=== PATIENT | male | born 1945 | race Caucasian/White ===

== ENCOUNTER 2017-11-20 04:02 | Emergency (ER) | payer OTHER, MEDICARE ==
[2017-11-20] MEDS ORDERED: OXYCODONE-ACETAMINOPHEN 5-325 MG TABLET PO ONE (04:52)
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
[2017-11-20] MEDS ORDERED: CEPHALEXIN 500 MG CAPSULE PO ONE (05:51)
[2017-11-20 06:20] VITALS: BP 139/91
--- NOTE | 2017-11-20 08:01 | RADIOLOGY REPORT (SQ) ---
EXAM DESCRIPTION: ELBOW LEFT OVER 2 VIEWS COMPLETED DATE/TIME: 11/20/2017 4:45 am REASON FOR STUDY: fall with swelling COMPARISON: None. NUMBER OF VIEWS: Four views. TECHNIQUE: AP, lateral, and both oblique radiographic images acquired of the left elbow. LIMITATIONS: None. FINDINGS: MINERALIZATION: Normal. BONES: No acute fracture or dislocation. No worrisome bone lesions. JOINT: No effusion. SOFT TISSUES: Soft tissue swelling posteriorly. OTHER: No other significant finding. IMPRESSION: Soft tissue swelling. No acute posttraumatic bony changes. TECHNICAL DOCUMENTATION: JOB ID: [id number] [employer]- All Rights Reserved Reading location - IP/workstation name: [email or web address]
== END 2017-11-20 06:19 | disposition home or self-care (01) ==
LOC: ER 04:02
DX: L03.114 Cellulitis of left upper limb (principal); S50.312A Abrasion of left elbow, initial encounter; W01.0XXA Fall on same level from slipping, tripping and stumbling without subsequent striking against object, initial encounter; F17.200 Nicotine dependence, unspecified, uncomplicated; J44.9 Chronic obstructive pulmonary disease, unspecified; E11.9 Type 2 diabetes mellitus without complications; Z90.49 Acquired absence of other specified parts of digestive tract
CPT/HCPCS: 99283

== ENCOUNTER 2017-12-13 19:43 | Emergency (ER) | payer OTHER, MEDICARE ==
[2017-12-13] MEDS ORDERED: KETOROLAC TROMETHAMINE INJ/PF 30 MG/1 ML SDV IV ONE (21:16)
--- NOTE | 2017-12-13 21:16 | ER Document Report ---
ED General - General Chief Complaint: Elbow Injury Stated Complaint: LEFT ELBOW PAIN Time Seen by Provider: 12/13/17 20:34 TRAVEL OUTSIDE OF THE [place] IN LAST 30 DAYS: No - HPI Patient complains to provider of: Left elbow swelling Notes: Patient coming in for evaluation of left elbow swelling. Patient states he was recently seen an x-ray performed no signs of acute fracture patient states later his elbow did have swelling he had a scab on his own will be removed the scab and had a large amount of fluid release patient states the fluid has returned patient states some pain to palpation of the swelling of his elbow. Patient otherwise denies fever chills nausea vomiting diarrhea. Denies any pain with range of motion of the left arm or elbow - Related Data Allergies/Adverse Reactions: seafood Allergy (Uncoded 11/20/17 04:35) Past Medical History - Social History Smoking Status: Current Every Day Smoker Chew tobacco use (# tins/day): No Frequency of alcohol use: Occasional Drug Abuse: None Family History: Reviewed & Not Pertinent Patient has suicidal ideation: No Patient has homicidal ideation: No Pulmonary Medical History: Reports: Hx COPD Endocrine Medical History: Reports: Hx Diabetes Mellitus Type 2 Renal/ Medical History: Denies: Hx Peritoneal Dialysis Past Surgical History: Reports: Hx Cholecystectomy, Hx Herniorrhaphy - Immunizations Hx Diphtheria, Pertussis, Tetanus Vaccination: Yes Review of Systems - Review of Systems Constitutional: No symptoms reported EENT: No symptoms reported Cardiovascular: No symptoms reported Respiratory: No symptoms reported Gastrointestinal: No symptoms reported Genitourinary: No symptoms reported Male Genitourinary: No symptoms reported Musculoskeletal: Other - Elbow swelling Skin: No symptoms reported Hematologic/Lymphatic: No symptoms reported Neurological/Psychological: No symptoms reported -: Yes All other systems reviewed and negative Physical Exam - Vital signs Vitals: Temp Pulse Resp BP Pulse Ox 98.2 F 86 16 117/70 96 12/13/17 19:57 12/13/17 19:57 12/13/17 19:57 12/13/17 19:57 12/13/17 19:57 Interpretation: Normal - General General appearance: Appears well, Alert - HEENT Head: Normocephalic, Atraumatic Eyes: Normal Pupils: PERRL - Respiratory Respiratory status: No respiratory distress Chest status: Nontender Breath sounds: Normal Chest palpation: Normal - Cardiovascular Rhythm: Regular Heart sounds: Normal auscultation Murmur: No - Abdominal Inspection: Normal Distension: No distension Bowel sounds: Normal Tenderness: Nontender Organomegaly: No organomegaly - Back Back: Normal, Nontender - Extremities General upper extremity: Normal inspection, Edema - Patient has classic signs and symptoms of a olecranon bursitis on the left elbow. Mild warmth no significant erythema range of motion of the left arm is intact and nonpainful, Normal color, Normal ROM, Normal temperature General lower extremity: Normal inspection, Nontender, Normal color, Normal ROM , Normal temperature, Normal weight bearing. No: Tami's sign - Neurological Neuro grossly intact: Yes Cognition: Normal Orientation: AAOx4 Concepcion Coma Scale Eye Opening: Spontaneous [place] Coma Scale Verbal: Oriented Concepcion Coma Scale Motor: Obeys Commands [place] Coma Scale Total: 15 Speech: Normal Motor strength normal: LUE, RUE, LLE, RLE Sensory: Normal - Psychological Associated symptoms: Normal affect, Normal mood - Skin Skin Temperature: Warm Skin Moisture: Dry Skin Color: Normal Course - Re-evaluation Re-evalutation: 12/14/17 03:35 Patient with classic signs and symptoms of a bursitis. Patient was educated about treatment of bursitis discharged on follow-up with orthopedics. - Vital Signs Vital signs: Temp Pulse Resp BP Pulse Ox 97.5 F 71 18 121/71 98 12/13/17 21:30 12/13/17 21:30 12/13/17 21:30 12/13/17 21:30 12/13/17 21:30 Discharge - Discharge Clinical Impression: Olecranon bursitis, left elbow Condition: Good Disposition: HOME, SELF-CARE Instructions: Anti-Inflammatory Medication ([facility]), Bursitis ([facility]), Olecranon Bursitis ([facility]) Additional Instructions: Please use Jeff wrap as needed for compression to aid in your olecranon bursitis or elbow bursitis. Please take Tylenol anti-inflammatory medication for pain control. Would recommend eating food with the anti-inflammatory medication please be aware that this can cause GI issues. I would recommend follow-up with orthopedic doctor provided for further evaluation Prescriptions: Ibuprofen [Motrin 600 Mg Tablet] 600 mg PO TID #15 tablet Referrals: REYES MCKINLEY MD [ACTIVE STAFF] - Follow up as needed
[2017-12-13 21:39] VITALS: BP 121/71
== END 2017-12-13 21:39 | disposition home or self-care (01) ==
LOC: ER 19:43
DX: M70.22 Olecranon bursitis, left elbow (principal); E11.9 Type 2 diabetes mellitus without complications; J44.9 Chronic obstructive pulmonary disease, unspecified; F17.200 Nicotine dependence, unspecified, uncomplicated; Z91.013 Allergy to seafood
CPT/HCPCS: 99283; 96374; J1885

== ENCOUNTER 2018-02-28 00:23 | Emergency (ER) | payer OTHER, MEDICARE ==
--- NOTE | 2018-02-28 01:18 | RADIOLOGY REPORT (SQ) ---
EXAM DESCRIPTION: XR KNEE 4 OR MORE VIEWS COMPLETED DATE/TME: 02/28/2018 00:00 CLINICAL HISTORY: 72 years Male, Pain s/p injury yesterday COMPARISON: None. Findings: Atherosclerosis. Bones, joints, and soft tissues of the LEFT XR KNEE 4 VIEWS appear otherwise intact. IMPRESSION: No acute findings.
[2018-02-28] MEDS ORDERED: HYDROCODONE/ACETAMINOPHEN 5-325 MG TABLET PO ONE (01:39)
--- NOTE | 2018-02-28 01:40 | ER Document Report ---
ED General - General Chief Complaint: Knee Injury Stated Complaint: KNEE INJURY Time Seen by Provider: 02/28/18 01:30 Notes: Patient is 72-year-old male who was walking down steps and slipped in his knee against a railing on the steps. Says his pain in his left knee. He denies pain anywhere else. No other injuries. He is able walk and bear weight but says is painful to do so. He denies any weakness numbness into his left foot. No pain to his hip. He denies hitting his head. No other complaints at this time. Patient takes Lortab at home for chronic back pain. TRAVEL OUTSIDE OF THE [place] IN LAST 30 DAYS: No - Related Data Allergies/Adverse Reactions: seafood Allergy (Uncoded 11/20/17 04:35) Past Medical History - Social History Smoking Status: Unknown if Ever Smoked Frequency of alcohol use: None Drug Abuse: None Family History: Reviewed & Not Pertinent Patient has suicidal ideation: No Patient has homicidal ideation: No Pulmonary Medical History: Reports: Hx COPD Endocrine Medical History: Reports: Hx Diabetes Mellitus Type 2 Renal/ Medical History: Denies: Hx Peritoneal Dialysis Past Surgical History: Reports: Hx Cholecystectomy, Hx Herniorrhaphy - Immunizations Hx Diphtheria, Pertussis, Tetanus Vaccination: Yes Review of Systems - Review of Systems Notes: My Normal Review Basic REVIEW OF SYSTEMS: CONSTITUTIONAL : Denies fever, chills, or sweats. Denies recent illness. MUSCULOSKELETAL: Left knee pain SKIN: Denies rash or skin lesions. HEMATOLOGIC : Denies easy bruising or bleeding. NEUROLOGICAL: Denies altered mental status or loss of consciousness. Denies headache. Denies weakness or paralysis or loss of use of either side. Denies problems with gait or speech. Denies sensory or motor loss. ALL OTHER SYSTEMS REVIEWED AND NEGATIVE. Physical Exam - Vital signs Vitals: Temp Pulse Resp BP Pulse Ox 97.7 F 78 20 129/73 H 97 02/28/18 00:31 02/28/18 00:31 02/28/18 00:31 02/28/18 00:31 02/28/18 00:31 - Notes Notes: General Appearance: Well nourished, alert, cooperative, no acute distress, mild to moderate obvious discomfort. Vitals: reviewed, See vital signs table. Head: no swelling or tenderness to the head Eyes: PERRL, EOMI, Conjuctiva clear Neck: Supple, no neck tenderness, No thyromegaly Back: No tenderness palpation of thoracic or lumbar spine. Lungs: No wheezing, No rales, No rhonci, No accessory muscle use, good air exchange bilaterally. Heart: Normal rate, Regular rythm, No murmur, no rub Extremities: strength 5/5 in all extremities, good pulses in all extremities, patient has some pain palpation over the patella itself. The knee is not swollen. I am able to put his knee in flexion extension. He has no ligamentous laxity of the knee. His hip foot and ankle are all nontender. Is good distal pulses and good distal sensation. Other 3 extremities are nontender and there is no pain with range of motion. Skin: warm, dry, appropriate color, no rash Neuro: speech clear, oriented x 3, normal affect, responds appropriately to questions. Cranial nerves II through XII are intact. Patient moves all extremities on his own without difficulty. Course - Re-evaluation Re-evalutation: 02/28/18 03:08 Patient is well-appearing. His knee is not concerning on exam. I will give him an Jeff wrap. His x-rays negative. He has no swelling knee. He just has some pain over the patella but the x-ray shows no evidence of fracture. We will do an Jeff wrap and crutches. I will refer him to orthopedics for follow- up if he still having pain after 1 week. Patient to take his home prescribed pain medicine for pain. Patient agrees with plan will be discharged home. Patient to return to ER if he has swelling in his knee or worsening pain. Dictation of this chart was performed using voice recognition software; therefore, there may be some unintended grammatical errors. - Vital Signs Vital signs: Temp Pulse Resp BP Pulse Ox 97.7 F 78 20 129/73 H 97 02/28/18 00:31 02/28/18 00:31 02/28/18 00:31 02/28/18 00:31 02/28/18 00:31 Discharge - Discharge Clinical Impression: Strain of knee Qualifiers: Encounter type: initial encounter Laterality: left Qualified Code(s): S86.912A - Strain of unspecified muscle(s) and tendon(s) at lower leg level, left leg, initial encounter Condition: Good Disposition: HOME, SELF-CARE Additional Instructions: Please take your prescribed pain medicine for pain control. Please continue to wrap your knee with the jeff wrap for support. Use crutches if you have pain with weight bearing. Please follow up with the orthopedist for evaluation if you are still having pain after 1 week. Referrals: DANAE HUIZAR MD [ACTIVE STAFF] - Follow up in 1 week
[2018-02-28 03:33] VITALS: BP 126/71
== END 2018-02-28 02:30 | disposition home or self-care (01) ==
LOC: ER 00:23
DX: S86.912A Strain of unspecified muscle(s) and tendon(s) at lower leg level, left leg, initial encounter (principal); W10.9XXA Fall (on) (from) unspecified stairs and steps, initial encounter; J44.9 Chronic obstructive pulmonary disease, unspecified; E11.9 Type 2 diabetes mellitus without complications; Z91.013 Allergy to seafood; Z90.49 Acquired absence of other specified parts of digestive tract
CPT/HCPCS: 99283

== ENCOUNTER 2018-07-16 14:40 | Emergency (ER) | payer OTHER, MEDICARE ==
[2018-07-16 15:18] LABS: ABSOLUTE EOSINOPHILS # (AUTO) 0.1 10^3/uL (0.0-0.6); ABSOLUTE MONOCYTES (AUTO) 0.4 10^3/uL (0.1-1.4); ABSOLUTE NEUT (AUTO) 4.4 10^3/uL (1.7-8.2); BASOPHILS % (AUTO) 0.5 % (0-2); EOSINOPHILS % (AUTO) 1.6 % (0-6); HEMATOCRIT 43.1 % (37.9-51.0); HEMOGLOBIN 15.2 g/dL (13.5-17.0); LYMPHOCYTES % (AUTO) 28.4 % (13-45); MEAN CORPUSCULAR HGB CONC 35.2 g/dL (32.0-36.0); MEAN CORPUSCULAR VOLUME 91 fl (80-97); MONOCYTES % (AUTO) 6.3 % (3-13); PLATELET COUNT 221 10^3/uL (150-450); RED BLOOD COUNT 4.73 10^6/uL (4.35-5.55); SEGMENTED NEUTROPHILS % (AUTO) 63.2 % (42-78); TOTAL CELLS COUNTED % (AUTO) 100 %; WHITE BLOOD COUNT 6.9 10^3/uL (4.0-10.5)
[2018-07-16 15:20] LABS: APPEARANCE,URINE SLIGHTLY-CLOUDY; BILIRUBIN,URINE NEGATIVE (NEGATIVE); COLOR,URINE YELLOW; GLUCOSE, URINE >=500 mg/dL (NEGATIVE); KETONES,URINE NEGATIVE (NEGATIVE); LEUKOCYTE ESTERASE,URINE NEGATIVE (NEGATIVE); NITRITE,URINE NEGATIVE (NEGATIVE); PROTEIN,URINE NEGATIVE (NEGATIVE); URINE SPECIFIC GRAVITY 1.016; UROBILINOGEN,URINE NEGATIVE mg/dL (<2.0)
[2018-07-16 15:22] LABS: INTERNATIONAL RATION (INR) 0.91; PROTHROMBIN TIME 12.7 SEC (11.4-15.4)
[2018-07-16 15:32] LABS: ALANINE AMINOTRANSFERASE 28 U/L (21-72); ALBUMIN 3.9 g/dL (3.5-5.0); ALKALINE PHOSPHATASE 109 U/L (38-126); ANION GAP 10 (5-19); ASPARTATE AMINO TRANSFERASE 20 U/L (17-59); BILIRUBIN,DIRECT 0.3 mg/dL (0.0-0.4); BILIRUBIN,TOTAL 0.5 mg/dL (0.2-1.3); BLOOD UREA NITROGEN 12 mg/dL (7-20); CALCIUM 9.2 mg/dL (8.4-10.2); CARBON DIOXIDE 29 mmol/L (22-30); CHLORIDE 100 mmol/L (98-107); GLUCOSE 181 mg/dL (75-110); POTASSIUM 3.8 mmol/L (3.6-5.0); SODIUM 138.6 mmol/L (137-145); TOTAL PROTEIN 6.4 g/dL (6.3-8.2)
--- NOTE | 2018-07-16 15:36 | RADIOLOGY REPORT (SQ) ---
EXAM DESCRIPTION: PELVIS AP COMPLETED DATE/TIME: 07/16/2018 3:18 pm REASON FOR STUDY: pelvis pain COMPARISON: None. NUMBER OF VIEWS: One view TECHNIQUE: AP Pelvis LIMITATIONS: None. FINDINGS: MINERALIZATION: Normal. HIPS: No acute fracture or dislocation. No worrisome bone lesions. PELVIS AND SACRUM: No acute fracture or dislocation. No worrisome bone lesions. PUBIS AND ISCHIUM: No acute fracture. LOWER LUMBAR SPINE: No significant findings as visualized. SOFT TISSUES: No findings. OTHER: No other significant finding. IMPRESSION: No fracture or dislocation of the pelvis in single AP projection. TECHNICAL DOCUMENTATION: JOB ID: [id number] [employer]- All Rights Reserved Reading location - IP/workstation name: [email or web address]
--- NOTE | 2018-07-16 15:38 | RADIOLOGY REPORT (SQ) ---
EXAM DESCRIPTION: CHEST SINGLE VIEW COMPLETED DATE/TIME: 07/16/2018 3:18 pm REASON FOR STUDY: chest pain COMPARISON: None. EXAM PARAMETERS: NUMBER OF VIEWS: One view. TECHNIQUE: Single frontal radiographic view of the chest acquired. RADIATION DOSE: NA LIMITATIONS: None. FINDINGS: LUNGS AND PLEURA: No opacities, masses or pneumothorax. No pleural effusion. MEDIASTINUM AND HILAR STRUCTURES: No masses. Contour normal. HEART AND VASCULAR STRUCTURES: Heart normal in size. Normal vasculature. BONES: No acute findings. HARDWARE: None in the chest. OTHER: No other significant finding. IMPRESSION: NO ACUTE RADIOGRAPHIC FINDING IN THE CHEST. TECHNICAL DOCUMENTATION: JOB ID: [id number] [employer]- All Rights Reserved Reading location - IP/workstation name: [email or web address]
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
[2018-07-16] MEDS ORDERED: MORPHINE SULFATE 10 MG/ML INJ IV ONE (15:43)
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
--- NOTE | 2018-07-16 19:47 | EKG REPORT ---
SEVERITY:- NORMAL ECG - SINUS RHYTHM : Confirmed by: Shannon Vences MD 16-Jul-2018 19:47:18
[2018-07-16] MEDS ORDERED: KETOROLAC TROMETHAMINE INJ/PF 30 MG/1 ML SDV IV ONE (20:15)
[2018-07-16] MEDS ORDERED: OXYCODONE-ACETAMINOPHEN 5-325 MG TABLET PO ONE (22:09)
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
[2018-07-16 22:11] VITALS: BP 154/144
== END 2018-07-16 22:45 | disposition home or self-care (01) ==
LOC: ER 14:40
DX: T14.8XXA Other injury of unspecified body region, initial encounter (principal); M54.5 Low back pain; M25.511 Pain in right shoulder; M25.512 Pain in left shoulder; R10.2 Pelvic and perineal pain; V48.6XXA Car passenger injured in noncollision transport accident in traffic accident, initial encounter; F17.210 Nicotine dependence, cigarettes, uncomplicated; J44.9 Chronic obstructive pulmonary disease, unspecified; E11.9 Type 2 diabetes mellitus without complications; Z91.013 Allergy to seafood; F19.10 Other psychoactive substance abuse, uncomplicated
CPT/HCPCS: 93005; 96374; 99285; 96375; 36415; 85025; 85610; 82272; 80053; 81001; 71045; 72170; 73030; 70450; 71260; 72125; 74177; 93010; J1885; J2270

== ENCOUNTER 2019-04-16 16:07 | Observation (INO) | payer OTHER, MEDICARE ==
--- NOTE | 2019-04-16 16:32 | RADIOLOGY REPORT (SQ) ---
EXAM DESCRIPTION: CHEST SINGLE VIEW COMPLETED DATE/TIME: 04/16/2019 4:24 pm REASON FOR STUDY: stroke-like symptoms COMPARISON: 07/16/2018 NUMBER OF VIEWS: One view. TECHNIQUE: Single frontal radiographic image of the chest acquired. LIMITATIONS: None. FINDINGS: LUNGS AND PLEURA: Stable appearance. MEDIASTINUM AND HILAR STRUCTURES: Stable heart size and mediastinal structures. HEART AND VASCULAR STRUCTURES: Stable appearance. SUPPORT DEVICES: Appropriate location without change. BONES: No acute findings. OTHER: No other significant finding. IMPRESSION: STABLE APPEARANCE OF THE CHEST. SUPPORT DEVICES UNCHANGED. TECHNICAL DOCUMENTATION: JOB ID: [id number] [employer]- All Rights Reserved Reading location - IP/workstation name: [email or web address]
--- NOTE | 2019-04-16 16:32 | RADIOLOGY REPORT (SQ) ---
EXAM DESCRIPTION: CT HEAD WITHOUT COMPLETED DATE/TIME: 04/16/2019 4:18 pm REASON FOR STUDY: stroke-like symptoms COMPARISON: 07/16/2018 TECHNIQUE: Axial images acquired through the brain without intravenous contrast. Images reviewed wi th bone, brain and subdural windows. Additional sagittal and coronal reconstructions were generated. Images stored on PACS. All CT scanners at this facility use dose modulation, iterative reconstruction, and/or weight based d osing when appropriate to reduce radiation dose to as low as reasonably achievable (ALARA). [facility]: Dose Right [facility]: CareDose [facility]: Dose Right [facility]: Teradose 4D [facility]: [place] RADIATION DOSE: CT Rad equipment meets quality standard of care and radiation dose reduction techniq ues were employed. CTDIvol: 53.2 mGy. DLP: 1097 mGy-cm. mGy. LIMITATIONS: None. FINDINGS: VENTRICLES: Normal size and contour. CEREBRUM: No masses. No hemorrhage. No midline shift. No evidence for acute infarction. Normal gra y/white matter differentiation. No areas of low density in the white matter. CEREBELLUM: No masses. No hemorrhage. No alteration of density. No evidence for acute infarction. EXTRAAXIAL SPACES: No fluid collections. No masses. ORBITS AND GLOBE: No intra- or extraconal masses. Normal contour of globe without masses. CALVARIUM: No fracture. PARANASAL SINUSES: No fluid or mucosal thickening. SOFT TISSUES: No mass or hematoma. OTHER: No other significant finding. IMPRESSION: NORMAL BRAIN CT WITHOUT CONTRAST. EVIDENCE OF ACUTE STROKE: NO. COMMENT: Pertinent positive or negative findings of the imaging study reported as a CRITICAL EXAM t colleen LEE MD at16:25 on 04/16/2019. Category of Critical Exam: Stroke protocol. Quality ID # 436: Final reports with documentation of one or more dose reduction techniques (e.g., Au tomated exposure control, adjustment of the mA and/or kV according to patient size, use of iterative reconstruction technique) TECHNICAL DOCUMENTATION: JOB ID: [id number] [employer]- All Rights Reserved Reading location - IP/workstation name: [email or web address]
--- NOTE | 2019-04-16 16:40 | ER Document Report ---
ED NIH Stroke Scale - NIH Stroke Scale *: 1. NIH scale should be completed with appropriate accompanying assessment tools. *: 2. The NIH should reflect what the patient is capable of doing and should not be coached by the clinician. 1a. Level of Consciousness: 0=Alert;keenly responsive -: 1=Drowsy -: 2=Obtunded -: 3=Coma/unresponsive or reflex to noxious stimuli. 1a. Responses: 0 1b. Orientation Questions: a. What month is it? -: b. How old are you? -: 0=Answers both questions correctly. -: 1=Answers one question correctly or patient is intubated or has orotracheal trauma. -: 2=Answers neither question correctly. 1b. Responses: 0 1c. Response to commands: a. Open and close eyes? -: b. Hydraulic Riveter and release hand? -: Credit is given despite weakness. Demonstration of task is permitted. Substitute command if hands cannot be used. -: 0=Performs both tasks correctly -: 1=Performs one task correctly -: 2=Performs neither task correctly 1c. Responses: 0 2. Gaze: Establish eye contact and instruct patient to "Follow my finger" -: 0=Normal -: 1=Partial gaze palsy. Gaze is abnormal in one or both eyes, but where forced deviation or total gaze paresis is not present. -: 2=Forced deviation or total gaze paresis. 2. Responses: 0 3. Visual Dueñas: Sees fingers in all four quadrants. -: 0=No visual loss. -: 1=Partial hemianopsia. -: 2=Complete hemianopsia. -: 3=Bilateral hemianopsia (including Cortical blindness) 3. Responses: 0 4. Facial Movement: Instruct patient to: -: a. Show me your teeth -: b. Raise your eyebrows -: c. Close your eyes -: d. Smile -: 0=Normal symmetrical movement -: 1=Minor paralysis (flattened nasolabial fold, asymmetry on smiling). -: 2=Partial paralysis (total or near total paralysis of lower face). -: 3=Complete paralysis of upper and lower face 4. Responses: 0 5. Motor functions (left arm): Alternate sides and extend each arm with palms down (90 degrees if sitting or 45 degrees for supine). -: 0=No drift;limb holds for full 10 seconds. -: 1=Drift; limb holds but drifts down before full 10 seconds, but does not hit bed. -: 2=Some effort against gravity; limb cannot get to or maintain position. -: 3=No effort against gravity; limb falls. -: 4=No movement. -: UN=Amputation, joint fusion, explain in comments. 5. Responses (left arm): 0 5. Motor Functions (right arm): Alternate sides and extend each arm with palms down (90 degrees if sitting or 45 degrees for supine). -: 0=No drift;limb holds for full 10 seconds. -: 1=Drift; limb holds but drifts down before full 10 seconds, but does not hit bed. -: 2=Some effort against gravity; limb cannot get to or maintain position. -: 3=No effort against gravity; limb falls. -: 4=No movement. -: UN=Amputation, joint fusion, explain in comments. 5. Responses (right arm): 0 6. Motor Functions (left leg): With patient lying supine, alternate sides and extend each leg (30 degrees always while supine). -: 0=No drift, leg holds position for full 5 seconds -: 1=Drift; leg falls before full 5 seconds but does not hit bed. -: 2=Some effort against gravity, leg falls to bed but some effort against gravity. -: 3=No effort against gravity, leg falls to bed immediately. -: 4=No movement. -: UN=Amputation, joint fusion; explain in comments. 6. Responses (left leg): 0 6. Motor Functions (right leg): With patient lying supine, alternate sides and extend each leg (30 degrees always while supine). -: 0=No drift, leg holds position for full 5 seconds -: 1=Drift; leg falls before full 5 seconds but does not hit bed. -: 2=Some effort against gravity, leg falls to bed but some effort against gravity. -: 3=No effort against gravity, leg falls to bed immediately. -: 4=No movement. -: UN=Amputation, joint fusion; explain in comments. 6. Responses (right leg): 0 7. Limb Ataxia: With eyes open instruct patient to: -: a. "Touch your finger to your nose". -: b. "Touch your heel to your block" -: 0=Absent -: 1=Present in one limb. -: 2=Present in two limbs. -: UN=Amputation or joint fusion; explain in comments. 7. Responses: 0 8. Sensory: Test sensation using pinprick or noxious stimuli. Test as many body parts as possible. -: 0=Normal;no sensory loss -: 1=Mile to moderate sensory loss (patient feels pin prick but is less sharp on affected side). -: 2=Severe or total sensory loss. 8. Responses: 0 9. Best Language: Instruct patient to: -: a. "Describe what you see in this picture." -: b. "Name the items in this picture." -: c. "Read these sentences." -: 0=No aphasia, normal -: 1=Mild to moderate aphasia. -: 2=Severe aphasia -: 3=Mute, global aphasia, no usable speech or auditory comprehension. 9. Responses: 0 10. Articulation, Dysarthia: Instruct patient to: -: "Read these words" or "Repeat these words" -: 0=Normal -: 1=Mild to moderate; patient may slur some words but can be understood without difficulty. -: 2=Severe; patients speech so slurred as to be unintelligible in the absence of dysphasia. -: UN=Intubated or other physical barrier, explain in comments. 10. Responses: 1 11. Extinction or inattention: 0=No abnormality -: 1= Visual, tactile, auditory, spatial, or personal inattention or extinction to bilateral simulation in one or the sensory modalities. -: 2=Profound tavares-inattention or tavares-inattention to more than one modality; does not recognize own hand. 11. Responses: 0 Total Score: 1
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
[2019-04-16 17:01] LABS: ABSOLUTE EOSINOPHILS # (AUTO) 0.1 10^3/uL (0.0-0.6); ABSOLUTE LYMPHOCYTES (AUTO) 1.6 10^3/uL (0.5-4.7); ABSOLUTE MONOCYTES (AUTO) 0.5 10^3/uL (0.1-1.4); BASOPHILS % (AUTO) 0.6 % (0-2); HEMOGLOBIN 14.3 g/dL (13.5-17.0); LYMPHOCYTES % (AUTO) 25.9 % (13-45); MEAN CORPUSCULAR HEMOGLOBIN 31.6 pg (27.0-33.4); MEAN CORPUSCULAR HGB CONC 34.1 g/dL (32.0-36.0); MEAN CORPUSCULAR VOLUME 93 fl (80-97); MONOCYTES % (AUTO) 8.3 % (3-13); PLATELET COUNT 203 10^3/uL (150-450); RED BLOOD COUNT 4.53 10^6/uL (4.35-5.55); RED CELL DISTRIBUTION WIDTH 13.1 % (11.5-14.0); SEGMENTED NEUTROPHILS % (AUTO) 63.2 % (42-78); TOTAL CELLS COUNTED % (AUTO) 100 %; WHITE BLOOD COUNT 6.4 10^3/uL (4.0-10.5)
[2019-04-16 17:03] LABS: INTERNATIONAL RATION (INR) 1.03
[2019-04-16 17:06] LABS: PROTHROMBIN TIME 13.6 SEC (11.4-15.4)
[2019-04-16 17:31] LABS: ALBUMIN 3.9 g/dL (3.5-5.0); ALCOHOL < 10 mg/dL (NONE DETECTED); ALKALINE PHOSPHATASE 87 U/L (38-126); ANION GAP 8 (5-19); ASPARTATE AMINO TRANSFERASE 19 U/L (17-59); BILIRUBIN,DIRECT 0.2 mg/dL (0.0-0.4); BILIRUBIN,TOTAL 0.7 mg/dL (0.2-1.3); BLOOD UREA NITROGEN 12 mg/dL (7-20); CALCIUM 9.4 mg/dL (8.4-10.2); CARBON DIOXIDE 32 mmol/L (22-30); CHLORIDE 97 mmol/L (98-107); GLUCOSE 253 mg/dL (75-110); POTASSIUM 3.7 mmol/L (3.6-5.0); TOTAL PROTEIN 6.5 g/dL (6.3-8.2)
[2019-04-16] MEDS ORDERED: ONDANSETRON HCL INJ/PF 4 MG/2 ML SDV IV PRN (18:25)
[2019-04-16] MEDS ORDERED: ACETAMINOPHEN 325 MG TABLET PO PRN (18:25)
[2019-04-16] MEDS ORDERED: DEXTROSE 50%-WATER 25 GM/50 ML DISP.SYRIN IV PRN ×2 (18:29)
[2019-04-16] MEDS ORDERED: DEXTROSE 40% GEL 15 GM TUBE PO PRN ×2 (18:29)
[2019-04-16] MEDS ORDERED: GLUCAGON,HUMAN RECOMB 1 MG INJ IM PRN (18:29)
[2019-04-16] MEDS ORDERED: OXYCODONE-ACETAMINOPHEN 5-325 MG TABLET PO PRN (18:53)
--- NOTE | 2019-04-16 18:53 | PDOC H&P ---
History of Present Illness Admission Date/PCP: 04/16/19 18:33 [facility] Patient complains of: slurred speech this morning. History of Present Illness: SUSANNA HURTADO is a 73 year old male male with history of diabetes mellitus, hypertension, back pain came in with complaints of slurred speech. Patient not able to give much history. As per the ER physician his friends told him to wait for him to pick him up he waited for 3 hours they are no-show so he started w alking back to his home or place of leaving and felt dizzy having slurred speech brought to the emergency room for further evaluation. Only complaint in the ER is slurred speech ER physician did a CT head which was negative for acute pathology chest x-ray was negative for acute pathology INH score is 1 ER physician spoke to the neurology in [place] as per the recommendations no TPA was given. MEDICAL consult was called for further management. Past Medical History Pulmonary Medical History: Reports: Chronic Obstructive Pulmonary Disease (COPD) Endocrine Medical History: Reports: Diabetes Mellitus Type 2 Past Surgical History Past Surgical History: Reports: Cholecystectomy, Herniorrhaphy Social History Smoking Status: Current Every Day Smoker Frequency of Alcohol Use: Occasional Hx Recreational Drug Use: No Drugs: None - Advance Directive Resuscitation Status: Full Code Family History Family History: Reviewed & Not Pertinent Parental Family History Reviewed: Yes - No family history as per the patient Children Family History Reviewed: Yes Sibling(s) Family History Reviewed.: Yes Medication/Allergy Home Medications: Cephalexin Monohydrate [Keflex 500 mg Capsule] 500 mg PO Q6H 7 Days capsule 11/20/17 Hydrocodone/Acetaminophen [Kihei 5-325 Tablet] 1 each PO Q4 PRN #15 tablet 11/20/17 Ibuprofen [Motrin 600 Mg Tablet] 600 mg PO TID #15 tablet 12/13/17 Oxycodone HCl/Acetaminophen [Percocet 5-325 mg Tablet] 1 - 2 tab PO ASDIR PRN #25 tablet 07/16/18 Allergies/Adverse Reactions: seafood Allergy (Uncoded 11/20/17 04:35) Review of Systems Constitutional: ABSENT: chills, fatigue, fever(s), headache(s), weakness Eyes: ABSENT: visual disturbances Ears: ABSENT: hearing changes Nose, Mouth, and Throat: ABSENT: mouth pain, sore throat Cardiovascular: ABSENT: edema, orthropnea, palpitations Respiratory: ABSENT: dyspnea, hemoptysis Gastrointestinal: ABSENT: dysphagia, heartburn Musculoskeletal: ABSENT: joint swelling Neurological: PRESENT: other - Slurred speech. ABSENT: abnormal gait, abnormal speech, confusion, dizziness, focal weakness, syncope Psychiatric: ABSENT: anxiety, depression, homidical ideation, suicidal ideation Physical Exam Vital Signs: Temp Pulse Resp BP Pulse Ox 76 20 138/85 H 100 04/16/19 17:05 04/16/19 17:05 04/16/19 17:05 04/16/19 17:05 General appearance: PRESENT: no acute distress, cooperative, thin Head exam: PRESENT: atraumatic Eye exam: PRESENT: PERRLA Mouth exam: PRESENT: moist, neck supple, tongue midline Teeth exam: PRESENT: poor dentation Neck exam: ABSENT: carotid bruit, JVD, lymphadenopathy, thyromegaly Respiratory exam: PRESENT: decreased breath sounds Cardiovascular exam: PRESENT: RRR. ABSENT: diastolic murmur, rubs, systolic murmur GI/Abdominal exam: PRESENT: normal bowel sounds, soft. ABSENT: distended, guard ing, mass, organolmegaly, rebound, tenderness Rectal exam: PRESENT: deferred Extremities exam: PRESENT: full ROM. ABSENT: calf tenderness, clubbing, pedal edema Neurological exam: PRESENT: alert, awake, oriented to person, oriented to place, oriented to time, oriented to situation, CN II-XII grossly intact. ABSENT: motor sensory deficit Psychiatric exam: PRESENT: appropriate affect, normal mood. ABSENT: homicidal ideation, suicidal ideation Skin exam: PRESENT: dry, intact, warm. ABSENT: cyanosis, rash Results Laboratory Results: 04/16/19 16:41 04/16/19 16:41 04/16/19 04/16/19 16:41 16:41 WBC 6.4 RBC 4.53 Hgb 14.3 Hct 42.0 MCV 93 MCH 31.6 MCHC 34.1 RDW 13.1 Plt Count 203 Seg Neutrophils % 63.2 Sodium 137.4 Potassium 3.7 Chloride 97 L Carbon Dioxide 32 H Anion Gap 8 BUN 12 Creatinine 0.66 Est GFR ( Amer) > 60 Glucose 253 H Calcium 9.4 Total Bilirubin 0.7 AST 19 Alkaline Phosphatase 87 Total Protein 6.5 Albumin 3.9 04/16/19 16:41 Troponin I < 0.012 Impressions: Chest X-Ray 04/16/19 16:12 IMPRESSION: STABLE APPEARANCE OF THE CHEST. SUPPORT DEVICES UNCHANGED. Head CT 04/16/19 16:12 IMPRESSION: NORMAL BRAIN CT WITHOUT CONTRAST. EVIDENCE OF ACUTE STROKE: NO. Assessment and Plan - Diagnosis (1) Slurred speech Is this a current diagnosis for this admission?: Yes (2) HTN (hypertension) Is this a current diagnosis for this admission?: No (4) Back pain Is this a current diagnosis for this admission?: No - Plan Summary Summary: 1. transient ischemic attack 75-year-old male came to the emergency room with complaints of slurred speech CT head was negative NIH score of 1 as per the neurology recommendations no TPA was given in the ER plan to put him in ICU as observation , carotid Doppler was requested,aspiration, fall , seizure precautions are requested . stroke protocol was implemented . GI prophylaxis DVT prophylaxis initiated. Patient is started on aspirin, atorvastatin and to check the lipid panel in the morning. MRI of the brain was requested. Carotid Doppler was requested. Started on insulin sliding scale before meals and at bedtime. 2.hypertension And given the history of chronic essential hypertension taking lisinopril at home. Started on lisinopril 10 mg p.o. daily. To check blood pressures every shift. 2.diabetes mellitus type 2 Admitted he is a diabetic taking metformin, glipizide and a unknown third medication. To place him on insulin sliding scale and to check hemoglobin A1c in the morning. 4.chronic back pain He is taking oxycodone and ibuprofen at home. To restart oxycodone 1 tablet every 4 as needed for back pain. To check for urine drug screen. 8.tobacco abuse Patient is a chronic current day smoker smoking counseling was provided for more than 20 minutes to start him on nicotine patch. - Time Time Spent with patient: 25-34 minutes Medications reviewed and adjusted accordingly: Yes Anticipated discharge: Home
--- NOTE | 2019-04-16 19:56 | EKG REPORT ---
SEVERITY:- NORMAL ECG - SINUS RHYTHM : Confirmed by: Shannon Vences MD 16-Apr-2019 19:56:12
--- NOTE | 2019-04-16 20:46 | RADIOLOGY REPORT (SQ) ---
MR BRAIN WITHOUT IV CONTRAST EXAM DATE: 04/16/2019 12:00 AM CDT HISTORY: TIA. COMPARISON: CT scan from earlier the same day. TECHNIQUE: Multisequence, multiplanar MR imaging of the brain was performed without the administration of intravenous gadolinium. FINDINGS: Scattered areas of T2/FLAIR hyperintense foci are seen in the supratentorial white matter, likely representing chronic microvascular ischemia. There is no acute infarction, intracranial hemorrhage, extra-axial fluid collection, or mass. The brainstem, posterior fossa, and cervicomedullary junction are preserved. The intravascular flow voids are preserved. The orbits are unremarkable. No abnormality of the skull base or calvarium is seen. The paranasal sinuses are clear. IMPRESSION: 1. No acute infarction. 2. Senescent changes with chronic microvascular ischemia.
[2019-04-16] MEDS ORDERED: NICOTINE 14 MG/24 HR PATCH.TD24 TD ONE (21:00)
--- NOTE | 2019-04-16 21:23 | RADIOLOGY REPORT (SQ) ---
EXAM DESCRIPTION: US CAROTID DOPPLER BILATERAL COMPLETED DATE/TME: 04/16/2019 00:00 CLINICAL HISTORY: TIA COMPARISON: None. FINDINGS: Duplex images of the carotid and vertebral arteries were submitted. There is no elevation of the peak systolic velocity to suggest a hemodynamically significant stenosis. There is antegrade flow in both vertebral arteries. The peak systolic velocity of the right ICA and right CCA are of 99 and 52 cm/s. The peak systolic velocity of the left ICA left CCA are 91 and 53 cm/s. There is plaque formation within both carotid bulbs and internal carotid arteries, left greater than right. Peak systolic velocities of the mid and distal internal carotid arteries were not submitted. IMPRESSION: No hemodynamically significant stenosis. Antegrade flow in both vertebral arteries.
[2019-04-16] MEDS ORDERED: ATORVASTATIN CALCIUM 40 MG TABLET PO SCH (22:00)
[2019-04-16] MEDS: FAMOTIDINE 20 MG TABLET PO SCH (22:05)
[2019-04-16] MEDS: INSULIN REG, HUMAN 100 UNIT/ML 3 ML VIAL (PYX) SUBCUT SCH (22:07)
[2019-04-16] MEDS: ASPIRIN 325 MG TABLET PO SCH (22:11)
[2019-04-16] MEDS: LISINOPRIL 10 MG TABLET PO SCH (22:12)
[2019-04-17 00:09] LABS: URINE BARBITURATES SCREEN NEGATIVE; URINE BENZODIAZEPINES SCREEN NEGATIVE; URINE COCAINE SCREEN NEGATIVE; URINE MARIJUANA (THC) SCREEN NEGATIVE; URINE METHADONE SCREEN NEGATIVE; URINE PHENCYCLIDINE SCREEN NEGATIVE
[2019-04-17 00:13] LABS: URINE AMPHETAMINES SCREEN UNCONFIRMED POSITIVE
[2019-04-17 01:14] LABS: CREATINE KINASE MB 1.49 ng/mL (<4.55)
[2019-04-17 01:17] LABS: TROPONIN I < 0.012 ng/mL
[2019-04-17 06:57] LABS: ABSOLUTE EOSINOPHILS # (AUTO) 0.2 10^3/uL (0.0-0.6); ABSOLUTE LYMPHOCYTES (AUTO) 1.9 10^3/uL (0.5-4.7); ABSOLUTE MONOCYTES (AUTO) 0.4 10^3/uL (0.1-1.4); ABSOLUTE NEUT (AUTO) 2.1 10^3/uL (1.7-8.2); BASOPHILS % (AUTO) 0.8 % (0-2); EOSINOPHILS % (AUTO) 4.3 % (0-6); HEMOGLOBIN 14.3 g/dL (13.5-17.0); LYMPHOCYTES % (AUTO) 41.3 % (13-45); MEAN CORPUSCULAR HEMOGLOBIN 31.4 pg (27.0-33.4); MEAN CORPUSCULAR VOLUME 92 fl (80-97); MONOCYTES % (AUTO) 8.5 % (3-13); PLATELET COUNT 187 10^3/uL (150-450); RED BLOOD COUNT 4.56 10^6/uL (4.35-5.55); RED CELL DISTRIBUTION WIDTH 13.1 % (11.5-14.0); SEGMENTED NEUTROPHILS % (AUTO) 45.1 % (42-78); TOTAL CELLS COUNTED % (AUTO) 100 %; WHITE BLOOD COUNT 4.7 10^3/uL (4.0-10.5)
[2019-04-17 07:24] LABS: ALBUMIN 3.4 g/dL (3.5-5.0); ALKALINE PHOSPHATASE 73 U/L (38-126); ANION GAP 6 (5-19); ASPARTATE AMINO TRANSFERASE 16 U/L (17-59); BILIRUBIN,DIRECT 0.1 mg/dL (0.0-0.4); BILIRUBIN,TOTAL 0.6 mg/dL (0.2-1.3); BLOOD UREA NITROGEN 14 mg/dL (7-20); CALCIUM 9.1 mg/dL (8.4-10.2); CARBON DIOXIDE 31 mmol/L (22-30); CHLORIDE 103 mmol/L (98-107); CREATINE KINASE 72 U/L (55-170); GLUCOSE 147 mg/dL (75-110); TOTAL PROTEIN 5.9 g/dL (6.3-8.2); TRIGLYCERIDES 89 mg/dL (<150)
[2019-04-17 07:32] LABS: CREATINE KINASE MB 1.17 ng/mL (<4.55); NT PRO BNP 99 pg/mL (5-900)
[2019-04-17 07:34] LABS: DIRECT LDL 45 mg/dL (<100)
[2019-04-17 07:37] LABS: TROPONIN I < 0.012 ng/mL
[2019-04-17] MEDS ORDERED: INFLUENZA QUAD (6MOS+) 2019-20 VAC 0.5 ML SYR IM ONE (08:00)
[2019-04-17 08:44] VITALS: BP 101/63
--- NOTE | 2019-04-17 09:37 | PDOC DISCHARGE SUMMARY ---
Impression - Admit/DC Date/PCP Admission Date/Primary Care Provider: 04/16/19 18:33 [facility] Discharge Date: 04/17/19 - Assessment Summary: 1. transient ischemic attack 75-year-old male came to the emergency room with complaints of slurred speech CT head was negative NIH score of 1 as per the neurology recommendations no TPA was given in the ER plan to put him in ICU as observation , carotid Doppler was requested,aspiration, fall , seizure precautions are requested . stroke protocol was implemented . GI prophylaxis DVT prophylaxis initiated. Patient is started on aspirin, atorvastatin and to check the lipid panel in the morning. MRI of the brain was requested. Carotid Doppler was requested. Started on insulin sliding scale before meals and at bedtime. 2.hypertension And given the history of chronic essential hypertension taking lisinopril at home. Started on lisinopril 10 mg p.o. daily. To check blood pressures every shift. 2.diabetes mellitus type 2 Admitted he is a diabetic taking metformin, glipizide and a unknown third medication. To place him on insulin sliding scale and to check hemoglobin A1c in the morning. 4.chronic back pain He is taking oxycodone and ibuprofen at home. To restart oxycodone 1 tablet every 4 as needed for back pain. To check for urine drug screen. 8.tobacco abuse Patient is a chronic current day smoker smoking counseling was provided for more than 20 minutes to start him on nicotine patch. - Additional Information Resuscitation Status: Full Code Discharge Diet: As Tolerated Discharge Activity: Activity As Tolerated Referrals: [facility] [Primary Care Provider] - Follow up as needed Prescriptions: Aspirin [Aspirin 325 mg Tablet] 325 mg PO DAILY #30 tablet Atorvastatin Calcium [Lipitor 40 mg Tablet] 40 mg PO QHS #30 tablet Lisinopril [Prinivil 10 mg Tablet] 10 mg PO DAILY #30 tablet Home Medications: Aspirin [Aspirin 325 mg Tablet] 325 mg PO DAILY #30 tablet 04/17/19 Atorvastatin Calcium [Lipitor 40 mg Tablet] 40 mg PO QHS #30 tablet 04/17/19 Lisinopril [Prinivil 10 mg Tablet] 10 mg PO DAILY #30 tablet 04/17/19 History of Present Illiness History of Present Illness: SUSANNA HURTADO is a 73 year old male who presented to ER with slurred speech, negative head CT and an NIH score of 1. Hospital Course Hospital Course: Patient presented to the ER with complaints of slurred speech. Patient was placed in observation status obtained a carotid Doppler and MRI both which were negative at this time. Patient was started on aspirin and atorvastatin and a lipid panel was checked. Patient also found to have hypertension for which we started him on lisinopril. Patient was found to have an A1c of 7.9 for which I will start him on metformin 500 mg p.o. twice daily. He is also has a complaint of chronic back pain and takes oxycodone and ibuprofen at home. This seems to have been a TIA and patient will continue aspirin at home. I have discussed this with patient and patient is understandable of plan of care. Physical Exam Vital Signs: Temp Pulse Resp BP Pulse Ox 97.7 F 66 17 101/63 94 04/17/19 07:35 04/17/19 08:00 04/17/19 08:00 04/17/19 08:00 04/17/19 08:00 Intake & Output 04/16/19 04/17/19 04/18/19 06:59 06:59 06:59 Output Total 725 Balance -725 Weight 59.5 kg General appearance: PRESENT: no acute distress, well-developed, well-nourished Head exam: PRESENT: atraumatic, normocephalic Eye exam: PRESENT: conjunctiva pink, EOMI, PERRLA. ABSENT: scleral icterus Ear exam: PRESENT: normal external ear exam Mouth exam: PRESENT: moist, tongue midline Neck exam: ABSENT: carotid bruit, JVD, lymphadenopathy, thyromegaly Respiratory exam: PRESENT: clear to auscultation ritchie. ABSENT: rales, rhonchi, wheezes Cardiovascular exam: PRESENT: RRR. ABSENT: diastolic murmur, rubs, systolic murmur Pulses: PRESENT: normal dorsalis pedis pul Vascular exam: PRESENT: normal capillary refill GI/Abdominal exam: PRESENT: normal bowel sounds, soft. ABSENT: distended, guarding, mass, organolmegaly, rebound, tenderness Rectal exam: PRESENT: deferred Extremities exam: PRESENT: full ROM. ABSENT: calf tenderness, clubbing, pedal edema Neurological exam: PRESENT: alert, awake, oriented to person, oriented to place, oriented to time, oriented to situation, CN II-XII grossly intact. ABSENT: motor sensory deficit Psychiatric exam: PRESENT: appropriate affect, normal mood. ABSENT: homicidal ideation, suicidal ideation Skin exam: PRESENT: dry, intact, warm. ABSENT: cyanosis, rash Results Laboratory Results: WBC 4.7 10^3/uL (4.0-10.5) 04/17/19 06:25 RBC 4.56 10^6/uL (4.35-5.55) 04/17/19 06:25 Hgb 14.3 g/dL (13.5-17.0) 04/17/19 06:25 Hct 42.0 % (37.9-51.0) 04/17/19 06:25 MCV 92 fl (80-97) 04/17/19 06:25 MCH 31.4 pg (27.0-33.4) 04/17/19 06:25 MCHC 34.0 g/dL (32.0-36.0) 04/17/19 06:25 RDW 13.1 % (11.5-14.0) 04/17/19 06:25 Plt Count 187 10^3/uL (150-450) 04/17/19 06:25 Lymph % (Auto) 41.3 % (13-45) 04/17/19 06:25 Tate % (Auto) 8.5 % (3-13) 04/17/19 06:25 Eos % (Auto) 4.3 % (0-6) 04/17/19 06:25 Baso % (Auto) 0.8 % (0-2) 04/17/19 06:25 Absolute Neuts (auto) 2.1 10^3/uL (1.7-8.2) 04/17/19 06:25 Absolute Lymphs (auto) 1.9 10^3/uL (0.5-4.7) 04/17/19 06:25 Absolute Monos (auto) 0.4 10^3/uL (0.1-1.4) 04/17/19 06:25 Absolute Eos (auto) 0.2 10^3/uL (0.0-0.6) 04/17/19 06:25 Absolute Basos (auto) 0.0 10^3/uL (0.0-0.2) 04/17/19 06:25 Seg Neutrophils % 45.1 % (42-78) 04/17/19 06:25 PT 13.6 SEC (11.4-15.4) 04/16/19 16:41 INR 1.03 04/16/19 16:41 Sodium 139.9 mmol/L (137-145) 04/17/19 06:25 Potassium 4.0 mmol/L (3.6-5.0) 04/17/19 06:25 Chloride 103 mmol/L (98-107) 04/17/19 06:25 Carbon Dioxide 31 mmol/L (22-30) H 04/17/19 06:25 Anion Gap 6 (5-19) 04/17/19 06:25 BUN 14 mg/dL (7-20) 04/17/19 06:25 Creatinine 0.73 mg/dL (0.52-1.25) 04/17/19 06:25 Est GFR ( Amer) > 60 (>60) 04/17/19 06:25 Est GFR (MDRD) Non-Af > 60 (>60) 04/17/19 06:25 Glucose 147 mg/dL (75-110) H 04/17/19 06:25 POC Glucose 143 mg/dL (70-110) H 04/17/19 07:37 Hemoglobin A1c % 7.9 % (4.7-6.0) H 04/17/19 06:25 Calcium 9.1 mg/dL (8.4-10.2) 04/17/19 06:25 Magnesium 1.8 mg/dL (1.6-2.3) 04/17/19 06:25 Total Bilirubin 0.6 mg/dL (0.2-1.3) 04/17/19 06:25 Direct Bilirubin 0.1 mg/dL (0.0-0.4) 04/17/19 06:25 Neonat Total Bilirubin Not Reportable 04/17/19 06:25 Neonat Direct Bilirubin Not Reportable 04/17/19 06:25 Neonat Indirect Bili Not Reportable 04/17/19 06:25 AST 16 U/L (17-59) L 04/17/19 06:25 ALT 14 U/L (<50) 04/17/19 06:25 Alkaline Phosphatase 73 U/L (38-126) 04/17/19 06:25 Creatine Kinase 72 U/L (55-170) 04/17/19 06:25 CK-MB (CK-2) 1.17 ng/mL (<4.55) 04/17/19 06:25 Troponin I < 0.012 ng/mL 04/17/19 06:25 NT-Pro-B Natriuret Pep 99 pg/mL (5-900) 04/17/19 06:25 Total Protein 5.9 g/dL (6.3-8.2) L 04/17/19 06:25 Albumin 3.4 g/dL (3.5-5.0) L 04/17/19 06:25 Triglycerides 89 mg/dL (<150) 04/17/19 06:25 Cholesterol 89.20 mg/dL (0-200) 04/17/19 06:25 LDL Cholesterol Direct 45 mg/dL (<100) 04/17/19 06:25 VLDL Cholesterol 18.0 mg/dL (10-31) 04/17/19 06:25 HDL Cholesterol 38 mg/dL (>40) L 04/17/19 06:25 TSH 1.46 uIU/mL (0.47-4.68) 04/17/19 06:25 Urine Opiates Screen NEGATIVE 04/16/19 23:20 Urine Methadone Screen NEGATIVE 04/16/19 23:20 Ur Barbiturates Screen NEGATIVE 04/16/19 23:20 Ur Phencyclidine Scrn NEGATIVE 04/16/19 23:20 Ur Amphetamines Screen UNCONFIRMED POSITIVE 04/16/19 23:20 U Benzodiazepines Scrn NEGATIVE 04/16/19 23:20 Urine Cocaine Screen NEGATIVE 04/16/19 23:20 U Marijuana (THC) Screen NEGATIVE 04/16/19 23:20 Serum Alcohol < 10 mg/dL (NONE DETECTED) 04/16/19 16:41 04/16/19 04/16/19 04/17/19 16:41 16:41 00:40 CK-MB (CK-2) 2.12 1.49 Troponin I < 0.012 Cancelled < 0.012 NT-Pro-B Natriuret Pep 04/17/19 06:25 CK-MB (CK-2) 1.17 Troponin I < 0.012 NT-Pro-B Natriuret Pep 99 Impressions: Carotid Doppler Study 04/16/19 00:00 IMPRESSION: No hemodynamically significant stenosis. Antegrade flow in both vertebral arteries. Head MRI 04/16/19 00:00 IMPRESSION: 1. No acute infarction. 2. Senescent changes with chronic microvascular ischemia. Chest X-Ray 04/16/19 16:12 IMPRESSION: STABLE APPEARANCE OF THE CHEST. SUPPORT DEVICES UNCHANGED. Head CT 04/16/19 16:12 IMPRESSION: NORMAL BRAIN CT WITHOUT CONTRAST. EVIDENCE OF ACUTE STROKE: NO. Plan Time Spent: Greater than 30 Minutes Stroke Is this a Stroke Patient?: No Acute Heart Failure - Is this a Heart Failure Patient?: No
[2019-04-17] MEDS ORDERED: ENOXAPARIN SODIUM INJ 40 MG/0.4 ML DISP.SYRIN SUBCUT SCH (10:00)
[2019-04-17] MEDS ORDERED: NICOTINE 14 MG/24 HR PATCH.TD24 TD SCH (10:00)
[2019-04-17] MEDS: INSULIN REG, HUMAN 100 UNIT/ML 3 ML VIAL (PYX) SUBCUT SCH ×2 (10:02→13:17)
[2019-04-17] MEDS: LISINOPRIL 10 MG TABLET PO SCH (10:08)
[2019-04-17] MEDS: ASPIRIN 325 MG TABLET PO SCH (10:08)
[2019-04-17] MEDS: FAMOTIDINE 20 MG TABLET PO SCH (10:08)
--- NOTE | 2019-04-17 21:50 | EKG REPORT ---
SEVERITY:- NORMAL ECG - SINUS RHYTHM : Confirmed by: Shannon Vences MD 17-Apr-2019 21:48:50
== END 2019-04-17 16:24 | disposition home or self-care (01) ==
LOC: ER 16:07 → INTOOBSV 18:33 → EH 18:33 → 3S 20:31
PROVIDERS: ADMIT Internal Medicine; ATTEND Internal Medicine
DX: G45.9 Transient cerebral ischemic attack, unspecified (principal); I10 Essential (primary) hypertension; E11.9 Type 2 diabetes mellitus without complications; E66.9 Obesity, unspecified; G89.29 Other chronic pain; M54.9 Dorsalgia, unspecified; F17.200 Nicotine dependence, unspecified, uncomplicated; R25.2 Cramp and spasm; R53.83 Other fatigue; R47.1 Dysarthria and anarthria; R29.701 NIHSS score 1; Z79.899 Other long term (current) drug therapy; Z79.82 Long term (current) use of aspirin; Z79.891 Long term (current) use of opiate analgesic
CPT/HCPCS: 93005 ×2; 99285; 36415 ×2; 82553 ×2; 82962 ×2; 80307 ×2; 82550 ×2; 83735; 84443; 85025 ×2; 85610; 80053 ×2; 84484 ×2; 83036; 80061; 83880; 93880; 70551; 71045; 70450; 93010; G0378 ×3; J1815; J3490

== ENCOUNTER 2020-01-23 17:05 | Emergency (ER) | payer OTHER, MEDICARE ==
[2020-01-23 17:37] VITALS: BP 107/57
[2020-01-23] MEDS ORDERED: ACETAMINOPHEN 325 MG TABLET PO ONE (17:40)
--- NOTE | 2020-01-23 17:41 | ER Document Report ---
HPI - HPI Patient complains to provider of: Right ankle pain Time Seen by Provider: 01/23/20 17:35 Pain Level: 5 Context: 74-year-old male past medical history significant for hypertension, diabetes, hyperlipidemia, chronic back pain presents to the emergency room complaining of right ankle pain. Patient states he went to step off the porch when he lost his balance twisting his right ankle stating "I heard a pop" states is unable to ambulate secondary to pain. Denies any previous trauma or injury to his ankle. Did not take any medications for his symptoms. Associated Symptoms: None Exacerbated by: Movement, Walking Relieved by: Denies Similar symptoms previously: No Recently seen / treated by doctor: No - ROS Systems Reviewed and Negative: Yes All other systems reviewed and negative - NEURO Neurology: DENIES: Weakness - REPRODUCTIVE Reproductive: DENIES: : - MUSCULOSKELETAL Musculoskeletal: REPORTS: Extremity pain - DERM Skin Color: Other - Ecchymosis Past Medical History - General Information source: Patient - Social History Smoking Status: Current Every Day Smoker Chew tobacco use (# tins/day): No Frequency of alcohol use: None Drug Abuse: None Family History: Reviewed & Not Pertinent Patient has homicidal ideation: No Pulmonary Medical History: Reports: Hx COPD Endocrine Medical History: Reports: Hx Diabetes Mellitus Type 2 Renal/ Medical History: Denies: Hx Peritoneal Dialysis Past Surgical History: Reports: Hx Cholecystectomy, Hx Herniorrhaphy - Immunizations Hx Diphtheria, Pertussis, Tetanus Vaccination: Yes Vertical Provider Document - CONSTITUTIONAL Agree With Documented VS: Yes Exam Limitations: No Limitations General Appearance: Mild Distress - INFECTION CONTROL TRAVEL OUTSIDE OF THE [place] IN LAST 30 DAYS: No - HEENT HEENT: Atraumatic, Normocephalic - NECK Neck: Normal Inspection, Supple - RESPIRATORY Respiratory: Breath Sounds Normal, No Respiratory Distress, Chest Non-Tender - CARDIOVASCULAR Cardiovascular: Regular Rate, Regular Rhythm, No Murmur - MUSCULOSKELETAL/EXTREMETIES Musculoskeletal/Extremeties: Tender - Tenderness and swelling noted to the right lateral malleus. Painful range of motion with flexion, extension, eversion and inversion to the right ankle. No obvious deformity noted - NEURO Level of Consciousness: Awake, Alert, Appropriate Motor/Sensory: No Motor Deficit, No Sensory Deficit Notes: Positive right pedal pulse. Capillary refill less than 3 seconds. - DERM Integumentary: Warm, Dry, No Rash Notes: Ecchymosis is noted to the right lateral aspect of the right foot. Course - Re-evaluation Re-evalutation: 01/23/20 18:10 Patient is resting comfortably with decreased pain. Jeff wrap applied by nursing staff as documented. Patient is able to ambulate with slight limping noted to right leg. X-rays were reviewed with the patient. He was counseled to rest, ice, elevate his right ankle. Take Tylenol as needed for pain. Outpatient follow-up with orthopedics if not improving in 2 to 3 days. On-call physician was provided. Patient was given strict return to the emergency room guidelines. Return for any new or worsening symptoms. All questions were answered. Patient verbalized understanding and agrees with plan of care. 01/23/20 21:42 - Vital Signs Vital signs: Temp Pulse Resp BP Pulse Ox 98.8 F 86 18 107/57 L 99 01/23/20 17:36 01/23/20 17:36 01/23/20 17:36 01/23/20 17:36 01/23/20 17:36 - Diagnostic Test Radiology reviewed: Reports reviewed Procedures - Immobilization Right Ankle Time completed: 18:10 Pre-Proc Neuro Vasc Exam: Normal Immobilizer type: Jeff wrap Performed by: RN Post-Proc Neuro Vasc Exam: Normal Alignment checked and good: Yes Discharge - Discharge Clinical Impression: Right ankle sprain Qualifiers: Encounter type: initial encounter Involved ligament of ankle: unspecified ligament Qualified Code(s): S93.401A - Sprain of unspecified ligament of right ankle, initial encounter Condition: Stable Disposition: HOME, SELF-CARE Instructions: Sprained Ankle ([facility]) Additional Instructions: Rest, ice, elevate right ankle. Tylenol as needed for pain. Outpatient follow- up with orthopedics if not improving in 2 to 3 days. Return to the emergency room for any new or worsening symptoms. Referrals: [facility] [Primary Care Provider] - Follow up as needed GAIL FELDMAN MD [ACTIVE PROVISIONAL STAFF] - Follow up as needed
--- NOTE | 2020-01-23 18:00 | RADIOLOGY REPORT (SQ) ---
EXAM DESCRIPTION: ANKLE RIGHT COMPLETE IMAGES COMPLETED DATE/TIME: 01/23/2020 5:48 pm REASON FOR STUDY: injury COMPARISON: None. NUMBER OF VIEWS: Three views. TECHNIQUE: AP, lateral, and oblique radiographic images acquired of the right ankle. LIMITATIONS: None. FINDINGS: MINERALIZATION: Normal. BONES: No acute fracture or dislocation. No worrisome bone lesions. JOINTS: No effusions. SOFT TISSUES: No soft tissue swelling. No foreign body. OTHER: No other significant finding. IMPRESSION: NEGATIVE STUDY OF THE RIGHT ANKLE. NO RADIOGRAPHIC EVIDENCE OF ACUTE INJURY. TECHNICAL DOCUMENTATION: JOB ID: [id number] 2010 [employer]- All Rights Reserved Reading location - IP/workstation name: [email or web address]
== END 2020-01-23 18:15 | disposition home or self-care (01) ==
LOC: ER 17:05
DX: S93.401A Sprain of unspecified ligament of right ankle, initial encounter (principal); X50.0XXA Overexertion from strenuous movement or load, initial encounter; I10 Essential (primary) hypertension; E11.9 Type 2 diabetes mellitus without complications; E78.5 Hyperlipidemia, unspecified; G89.29 Other chronic pain; M54.9 Dorsalgia, unspecified; F17.200 Nicotine dependence, unspecified, uncomplicated; Z90.49 Acquired absence of other specified parts of digestive tract
CPT/HCPCS: 99283